=== PATIENT | female | born 1975 | race Caucasian/White ===

== ENCOUNTER 2021-04-27 17:54 | Emergency (ER) | payer MEDICARE, OTHER, MEDICAID ==
[~2021-04-27 17:54] MED LIST: CLEOCIN HCL300 MG PO; CYCLOBENZAPRINE10 MG PO; FLEXERIL 10 MG10 MG PO; KEFLEX CAP 500500 MG PO; PYRIDIUM100 MG PO; TORADOL 10 MG T10 MG PO; ZOFRAN ODT 4 MG4 MG PO
[2021-04-27] MEDS ORDERED: INDERAL TAB 2020 MG PO (21:49)
== END 2021-04-27 21:54 | disposition home or self-care (01) ==
LOC: ER1 17:54
DX: F41.8 Other specified anxiety disorders (principal); N39.0 Urinary tract infection, site not specified; F17.200 Nicotine dependence, unspecified, uncomplicated; Z88.2 Allergy status to sulfonamides
CPT/HCPCS: 81001; 87086; 99283

== ENCOUNTER 2021-05-03 16:06 | Inpatient (IN) | payer MEDICARE, OTHER ==
[~2021-05-03] VITALS: Ht 160 cm; Wt 54.9 kg
[~2021-05-03 16:06] MED LIST changes: +INDERAL TAB 2020 MG PO
[2021-05-03 17:14] LABS: HEMOGLOBIN 15.9 gm/dl (12.3-15.3); RED BLOOD COUNT 4.93 M/UL (4.00-5.10); WHITE BLOOD COUNT 14.4 K/UL (4.5-11.0)
[2021-05-03 17:34] LABS: BUN/CREATININE RATIO 25 (0-10)
[2021-05-03] MEDS ORDERED: AMITRIPTYLINE H10 MG PO (22:36)
[2021-05-03] MEDS ORDERED: ESCITALOPRAM OX20 MG PO (22:36)
[2021-05-03] MEDS ORDERED: PROTONIX 40 MG40 M1 PO (22:37)
[2021-05-03] MEDS ORDERED: HYDROCODON-ACE1 EAC6 PO (22:37)
[2021-05-04 06:20] LABS: HEMOGLOBIN 12.9 gm/dl (12.3-15.3); RED BLOOD COUNT 4.15 M/UL (4.00-5.10); WHITE BLOOD COUNT 6.8 K/UL (4.5-11.0)
[2021-05-04 06:29] LABS: BUN/CREATININE RATIO 17 (0-10)
[2021-05-04 06:48] LABS: PLESIOMONAS SHIGELLOIDES Not Detected (Negative); SALMONELLA Not Detected (Negative); VIBRIO Not Detected (Negative); VIBRIO CHOLERAE Not Detected (Negative)
[2021-05-04 06:49] LABS: ADENOVIRUS F 40/41 Not Detected (Negative); ASTROVIRUS Not Detected (Negative); CRYPTOSPORIDIUM Not Detected (Negative); E.COLI 0157 Not Detected (Negative); ENTAMOEBA HISTOLYTICA Not Detected (Negative); ENTEROAGGREGATIVE E.COLI (EAEC Not Detected (Negative); ENTEROPATHOGENIC E.COLI (EPEC) Not Detected (Negative); ENTEROTOXIGENIC E.COLI (ETEC) Not Detected (Negative); GIARDIA LAMBLIA Not Detected (Negative); NOROVIRUS GI/GII Not Detected (Negative); ROTOVIRUS A Not Detected (Negative); SAPOVIRUS Not Detected (Negative); SHIG/ENTEROINVAS.ECOLI (EIEC) Not Detected (Negative); SHIGA-LIK TOX.PRO.E.COLI (STEC Not Detected (Negative); YERSINIA ENTEROCOLITICA Not Detected (Negative)
[2021-05-04 09:42] LABS: CAMPYLOBACTER DETECTED (Negative)
[2021-05-04] MEDS ORDERED: ESTRACE0.5 MG PO (10:49)
[2021-05-04] MEDS ORDERED: LEVOTHYROXINE25 MCG PO (10:50)
[2021-05-04] MEDS ORDERED: IBU600 MG PO (10:50)
[2021-05-04] MEDS ORDERED: CRESTOR20 MG PO (10:51)
[2021-05-04] MEDS ORDERED: PROAIR HFA8.5 GM INH (10:52)
[2021-05-04] MEDS ORDERED: CYANOCOBAL1000 MCG/1 INJ (10:53)
[2021-05-04] MEDS ORDERED: HYDROCODON-ACE1 EAC6 PO (12:42)
[2021-05-05 06:52] LABS: BUN/CREATININE RATIO 8 (0-10)
[2021-05-06] MEDS ORDERED: FLAGYL 250 MG250 MG PO (12:46)
[2021-05-06] MEDS ORDERED: BENTYL 10MG CAP10 MG PO (12:46)
[2021-05-06] MEDS ORDERED: KEFLEX CAP 250250 MG PO (12:46)
== END 2021-05-06 12:42 | disposition home or self-care (01) | DRG 373 ==
LOC: ER1 16:06 → CDU 20:14 → M/S 20:14
PROVIDERS: Internal Medicine; Physician Assistant; ADMIT Internal Medicine
DX: A04.5 Campylobacter enteritis (principal); F41.9 Anxiety disorder, unspecified; E87.6 Hypokalemia; G89.4 Chronic pain syndrome; F17.200 Nicotine dependence, unspecified, uncomplicated; Z90.710 Acquired absence of both cervix and uterus; Z90.89 Acquired absence of other organs; Z98.890 Other specified postprocedural states; Z88.2 Allergy status to sulfonamides; Z79.899 Other long term (current) drug therapy
CPT/HCPCS: 36415; 80048; 80053; 81001; 82272; 83735; 85025; 87507; 96374; 96375; 99284; J0696; J2405; J7030; Q9967

== ENCOUNTER 2021-11-28 08:52 | Emergency (ER) | payer MEDICARE, OTHER ==
[~2021-11-28 08:52] MED LIST changes: +AMITRIPTYLINE H10 MG PO; +BENTYL 10MG CAP10 MG PO; +CRESTOR20 MG PO; +CYANOCOBAL1000 MCG/1 INJ; +ESCITALOPRAM OX20 MG PO; +ESTRACE0.5 MG PO; +FLAGYL 250 MG250 MG PO; +HYDROCODON-ACE1 EAC6 PO; +IBU600 MG PO; +KEFLEX CAP 250250 MG PO; +LEVOTHYROXINE25 MCG PO; +PROAIR HFA8.5 GM INH; +PROTONIX 40 MG40 M1 PO
[2021-11-28 09:24] LABS: HEMOGLOBIN 17.1 gm/dl (12.3-15.3); RED BLOOD COUNT 5.3 M/UL (4.00-5.10); WHITE BLOOD COUNT 9.6 K/UL (4.5-11.0)
[2021-11-28 10:25] LABS: BUN/CREATININE RATIO 29 (0-10)
[2021-11-28] MEDS ORDERED: K-TAB ER20 MEQ PO (12:45)
[2021-11-28] MEDS ORDERED: OMNICEF 300 MG300 MG PO (12:45)
[2021-11-28] MEDS ORDERED: ZOFRAN 4 MG TAB4 MG PO (12:46)
== END 2021-11-28 13:41 | disposition home or self-care (01) ==
LOC: ER1 08:52
PROVIDERS: Physician Assistant
DX: R11.2 Nausea with vomiting, unspecified (principal); R19.7 Diarrhea, unspecified; E87.6 Hypokalemia; Z90.710 Acquired absence of both cervix and uterus; Z88.2 Allergy status to sulfonamides
CPT/HCPCS: 80053; 80307; 81001; 82550; 82553; 83605; 83690; 84484; 85025; 87086; 96374; 99284; J2405; Q9967